=== PATIENT | male | born 1995 | race Caucasian/White ===

== ENCOUNTER 2020-01-23 05:41 | Emergency (ER) | payer OTHER ==
[~2020-01-23] VITALS: Ht 175.3 cm; Wt 68.0 kg
[2020-01-23] MEDS ORDERED: COZAAR100 MG (05:54)
[2020-01-23] MEDS ORDERED: [UNRECOGNIZED DRUG - REMARK] (05:54)
== END 2020-01-23 11:01 | disposition home or self-care (01) ==
LOC: ER 05:41
DX: K52.9 Noninfective gastroenteritis and colitis, unspecified (principal); R10.13 Epigastric pain

== ENCOUNTER → 2020-02-16 | Emergency (ER) | payer OTHER ==
[~2020-02-16] VITALS: Ht 175.3 cm; Wt 61.2 kg
[~2020-02-16] MED LIST: COZAAR100 MG; [UNRECOGNIZED DRUG - REMARK]
== END | disposition left against medical advice (07) ==
LOC: ER 03:02
DX: M54.5 Low back pain (principal); R51.9 Headache, unspecified